=== PATIENT | female | born 1940 | race Two or more races ===

== ENCOUNTER → 2019-04-28 | Outpatient (CLI) | payer OTHER ==
[~2019-04-28] MED LIST: ASA81 MG PO; CALCIUM 500 +1 EAC2 PO; CARDIZEM CD240 MG PO; CLONAZEPAM2 MG PO; LASIX20 MG PO; NABUMETONE500 MG PO; OMEPRAZOLE20 MG PO; PERCOCET 5/3251 TAB PO; PROTONIX40 MG PO; PROVENTIL S1 ML/5 MG IH; QVAR7.3 GM IH; RANITIDINE HCL300 M1 PO; SINGULAIR10 MG PO; SPIRIVA; TAMS0.4C PO; ULTRAM50 MG PO
== END | disposition home or self-care (01) ==
LOC: MRI 04-27 07:44
DX: M19.011 Primary osteoarthritis, right shoulder (principal); M25.511 Pain in right shoulder
CPT/HCPCS: 73222; A9575

== ENCOUNTER 2019-05-19 06:17 | Outpatient (CLI) | payer OTHER ==
[2019-05-19] MEDS ORDERED: RAZADYNE ER16 MG PO (11:05)
[2019-05-19] MEDS ORDERED: DULOXETINE HCL40 MG PO (11:06)
[2019-05-19] MEDS ORDERED: BUMETANIDE2 MG PO (11:06)
[2019-05-19] MEDS ORDERED: CAMBIA50 MG PO (11:06)
[2019-05-19] MEDS ORDERED: ATORVASTATIN CA20 MG PO (11:07)
[2019-05-19] MEDS ORDERED: DILTIAZEM ER240 M3 PO (11:07)
[2019-05-19] MEDS ORDERED: TOPROL XL50 M1 PO (11:07)
[2019-05-19] MEDS ORDERED: LASIX20 MG PO (11:07)
== END 2019-05-19 06:22 | disposition home or self-care (01) ==
LOC: LAB 06:17
DX: D64.89 Other specified anemias (principal); E88.89 Other specified metabolic disorders; D68.8 Other specified coagulation defects; N39.0 Urinary tract infection, site not specified; Z22.322 Carrier or suspected carrier of Methicillin resistant Staphylococcus aureus; I10 Essential (primary) hypertension

== ENCOUNTER 2019-05-24 06:50 | Outpatient (CLI) | payer OTHER ==
[~2019-05-24 06:50] MED LIST changes: +ATORVASTATIN CA20 MG PO; +BUMETANIDE2 MG PO; +CAMBIA50 MG PO; +DILTIAZEM ER240 M3 PO; +DULOXETINE HCL40 MG PO; +RAZADYNE ER16 MG PO; +TOPROL XL50 M1 PO
== END 2019-05-24 15:00 | disposition home or self-care (01) ==
LOC: LAB 06:50
DX: N39.0 Urinary tract infection, site not specified (principal)

== ENCOUNTER 2019-05-24 15:34 | Inpatient (IN) | payer OTHER ==
[~2019-05-24] VITALS: Ht 147.3 cm; Wt 72.6 kg
[2019-06-05] MEDS ORDERED: ABANEU-SL TABL1 EACH (09:03)
[2019-06-05] MEDS ORDERED: BACTRIM 400-801 EACH PO (09:05)
[2019-06-05] MEDS ORDERED: BUMETANIDE2 MG PO (09:06)
[2019-06-05] MEDS ORDERED: CATAPRES0.2 MG PO (09:07)
[2019-06-05] MEDS ORDERED: BACTRIM DS TAB1 EACH PO (09:08)
[2019-06-05] MEDS ORDERED: FOSAMAX70 MG PO (09:10)
[2019-06-05] MEDS ORDERED: VISTARIL25 MG PO (09:12)
[2019-06-05] MEDS ORDERED: SPIRIVA RESPIMAT4 G1 (09:15)
== END 2019-06-06 21:41 | disposition home or self-care (01) | DRG 483 ==
LOC: O/R 06-05 04:30 → SURG 06-05 04:30
PROVIDERS: ADMIT Orthopaedic Surgery
PROC: 0RRJ00Z Replacement of Right Shoulder Joint with Reverse Ball and Socket Synthetic Substitute, Open Approach (ICD-10-PCS; principal; 2019-06-05 07:00)
DX: M75.121 Complete rotator cuff tear or rupture of right shoulder, not specified as traumatic (principal); M25.811 Other specified joint disorders, right shoulder; M19.011 Primary osteoarthritis, right shoulder; I10 Essential (primary) hypertension

== ENCOUNTER 2019-06-06 23:56 | Emergency (ER) | payer OTHER ==
[~2019-06-06] VITALS: Ht 152.4 cm; Wt 72.6 kg
[~2019-06-06 23:56] MED LIST changes: +ABANEU-SL TABL1 EACH; +BACTRIM 400-801 EACH PO; +BACTRIM DS TAB1 EACH PO; +CATAPRES0.2 MG PO; +FOSAMAX70 MG PO; +SPIRIVA RESPIMAT4 G1; +VISTARIL25 MG PO
== END 2019-06-07 03:23 | disposition home or self-care (01) ==
LOC: ER 23:56
DX: S40.011A Contusion of right shoulder, initial encounter (principal); W18.39XA Other fall on same level, initial encounter; Y93.89 Activity, other specified; Y92.098 Other place in other non-institutional residence as the place of occurrence of the external cause; Y99.8 Other external cause status

== ENCOUNTER 2019-06-07 13:03 | Emergency (ER) | payer OTHER ==
[~2019-06-07] VITALS: Ht 157.5 cm; Wt 72.6 kg
== END 2019-06-07 16:17 | disposition home or self-care (01) ==
LOC: ER 13:03
DX: S40.011A Contusion of right shoulder, initial encounter (principal); Z96.611 Presence of right artificial shoulder joint; W18.09XA Striking against other object with subsequent fall, initial encounter; Y93.89 Activity, other specified; Y92.098 Other place in other non-institutional residence as the place of occurrence of the external cause; Y99.8 Other external cause status

== ENCOUNTER 2019-12-18 10:05 | Outpatient (CLI) | payer OTHER | END 2019-12-18 10:46 | disposition home or self-care (01) | LOC: RAD 10:05 | PROVIDERS: ATTEND Orthopaedic Surgery | DX: S40.011A Contusion of right shoulder, initial encounter (principal); Z96.611 Presence of right artificial shoulder joint ==

== ENCOUNTER 2019-12-18 10:53 | Outpatient (CLI) | payer OTHER | END 2019-12-18 10:59 | disposition home or self-care (01) | LOC: LAB 10:53 | PROVIDERS: ATTEND Orthopaedic Surgery | DX: D64.89 Other specified anemias (principal); M06.4 Inflammatory polyarthropathy ==

== ENCOUNTER 2021-06-10 10:59 | Outpatient (CLI) | payer OTHER | END 2021-06-10 11:04 | disposition home or self-care (01) | LOC: RAD 10:59 | PROVIDERS: ATTEND Orthopaedic Surgery | DX: M25.511 Pain in right shoulder (principal) ==